=== PATIENT | female | born 1950 | race Caucasian/White ===

== ENCOUNTER 2023-06-14 07:00 | Outpatient (CLI) | payer MEDICARE | END 2023-06-14 23:59 | disposition home or self-care (01) | LOC: LAB.S 07:00 | PROVIDERS: ATTEND Nurse Practitioner | DX: L02.216 Cutaneous abscess of umbilicus (principal) | CPT/HCPCS: 87070; 87077; 87205 ==

== ENCOUNTER 2023-07-26 11:17 | Outpatient (CLI) | payer MEDICARE, OTHER ==
--- NOTE | 2023-07-26 12:39 | XRAY Report ---
PROCEDURE: Chest 2V INDICATIONS: CHRONIC COUGH TECHNIQUE: 2 views of the chest were acquired. COMPARISON: 08/30/2015. FINDINGS: Surgical changes and devices: None. Lungs and pleura: No pleural effusions or pneumothorax. Lungs are clear. Mediastinum: Mediastinal contours appear normal. Heart size is normal. Bones and chest wall: No suspicious bony lesions. Overlying soft tissues appear unremarkable. IMPRESSION: No acute cardiopulmonary process. Reviewed by: Hermann Royal MD on 07/26/2023 12:37 PM PDT Approved by: Hermann Royal MD on 07/26/2023 12:37 PM PDT Station ID: [id number]
== END 2023-07-26 11:18 | disposition home or self-care (01) ==
LOC: DI 11:17
PROVIDERS: ATTEND Physician Assistant
DX: R05.3 Chronic cough (principal)